=== PATIENT | female | born 1955 | race Caucasian/White ===

== ENCOUNTER → 2021-03-30 09:50 | Outpatient (CLI) | payer MEDICARE, OTHER, SELFPAY ==
--- NOTE | 2021-03-30 | DI.MG.S_ITS ---
BILATERAL DIGITAL SCREENING MAMMOGRAM 3D/2D WITH CAD: 03/30/2021 CLINICAL: Routine screening. Family history of breast cancer. Comparison is made to exams dated: 04/25/2018 mammogram, 04/20/2017 mammogram, 03/17/2016 mammogram - [facility], and 08/31/2012 mammogram - [facility]. The tissue of both breasts is heterogeneously dense. This may lower the sensitivity of mammography. Current study was also evaluated with a Computer Aided Detection (CAD) system. There are benign post operative findings in the right breast. No significant masses, calcifications, or other findings are seen in either breast. There has been no significant interval change. IMPRESSION: BENIGN There is no mammographic evidence of malignancy. A 1 year screening mammogram is recommended. This exam was interpreted at Station ID: [id number]. NOTE: For mammograms, a report in lay terms will be sent to the patient. Approximately 15% of breast malignancies will not be visualized mammographically. In the management of a palpable breast mass, a negative mammogram must not discourage biopsy of a clinically suspicious lesion. Electronically Signed By: Jacob navarro/ricky:03/30/2021 10:50:24 letter sent: Normal Exam ACR BI-RADS Category 2: Benign Finding(s) [id number]
== END ==
PROVIDERS: PCP Internal Medicine; Referring Provider Internal Medicine; Visit Provider Internal Medicine
DX: Z12.31 Encounter for screening mammogram for malignant neoplasm of breast (principal); Z80.3 Family history of malignant neoplasm of breast
CPT/HCPCS: 77063; 77067

== ENCOUNTER → 2021-07-23 10:12 | Outpatient (CLI) | payer MEDICARE, OTHER, SELFPAY ==
--- NOTE | 2021-07-23 | DI.RAD.S_ITS ---
PROCEDURE: XR DEXA AXIAL SKELETON INDICATIONS: Asymptomatic menopausal state COMPARISON: [facility], CR, DEXA AXIAL SKELETON, 01/21/2009, 10:23. FINDINGS: This blank DEXA report has been sent in error by the PACS system. The correct and complete report will be forthcoming in 1-2 days. Thank you for your patience and understanding. Dictated by: Ajay Chao M.D. on 07/23/2021 at 13:34 Approved by: Ajay Chao M.D. on 07/23/2021 at 13:34
== END ==
PROVIDERS: PCP Internal Medicine; Referring Provider Family Medicine; Visit Provider Family Medicine
DX: M85.831 Other specified disorders of bone density and structure, right forearm (principal); Z78.0 Asymptomatic menopausal state; E07.9 Disorder of thyroid, unspecified; Z87.891 Personal history of nicotine dependence
CPT/HCPCS: 77080; 77081

== ENCOUNTER 2023-03-01 12:27 | Emergency (ER) | payer MEDICARE, OTHER, SELFPAY ==
[2023-03-01 12:35] VITALS: BP 158/74; PULSE 62; RESP 18; TEMP 36.6; O2SAT 99; BMI 24.4
[2023-03-01] MEDS: OXYCODONE/ACETAMINOPHEN 5/325 TABLET 1 TAB PO (13:42)
--- NOTE | 2023-03-01 14:35 | PC.NURSE ---
Wound cleaned with chlorahexadine. Pt tolerated well.
--- NOTE | 2023-03-01 14:40 | ED_ITS ---
HPI - Skin/Abscess/Foreign Bdy <Kaleb Murillo PA-C - Last Filed: 03/01/23 14:47> General Chief complaint: Skin/Abscess/Foreign Body Stated complaint: fish hook stuck in left thumb Time Seen by Provider: 03/01/23 13:24 Source: patient Mode of arrival: Ambulatory Limitations: no limitations History of Present Illness HPI narrative: 67-year-old female presents to the ED with a fish hook stuck in the left thumb. Patient states she was fishing earlier today, when the fissure accidentally embedded itself in her left thumb. Patient tried to remove the fishhook unsuccessfully at home. Patient complains of pain at the site, however denies numbness, tingling, weakness. Patient's last tetanus was 07/03/2021. The fishhook was contaminated with salt water and fish prior to embedding in the patient's thumb. Patient and patient's state that the azael was clamped down as flat as possible. They did bring another hook which was similar to the 1 embedded in the patient's thumb which shows a very slight azael. Related Data Previous Rx's Medication Instructions Recorded cephalexin 500 mg capsule 500 mg PO QID 7 days #28 caps 03/01/23 doxycycline hyclate 100 mg tablet 100 mg PO BID 7 days #14 tabs 03/01/23 Allergies Allergy/AdvReac Type Severity Reaction Status Date / Time cold medicine AdvReac Shakiness Uncoded 03/01/23 12:35 Review of Systems <Kaleb Murillo PA-C - Last Filed: 03/01/23 14:47> Review of Systems ROS Unobtainable: All systems reviewed & are unremarkable except as noted in HPI and below Constitutional Constitutional: Denies chills, Denies fatigue, Denies fever(s), Denies frequent falls, Denies lethargy and Denies weakness Eyes Eyes: Denies change in vision, Denies eye discharge, Denies irritation and Denies loss of vision ENT Ears, Nose, Mouth, and Throat: Denies change in voice, Denies dizziness, Denies neck pain, Denies sore throat and Denies throat swelling Cardiovascular Cardiovascular: Denies chest pain, Denies irregular heart rhythm, Denies li ghtheadedness, Denies palpitations, Denies dyspnea, Denies dyspnea on exertion and Denies orthopnea Respiratory Respiratory: Denies cough, Denies dyspnea, Denies dyspnea on exertion and Denies wheezing Gastrointestinal Gastrointestinal: Denies abdominal pain, Denies change in bowel habits, Denies diarrhea, Denies nausea and Denies vomiting Genitourinary Genitourinary: Denies hematuria, Denies flank pain, Denies urinary incontinence and Denies urinary urgency Musculoskeletal Musculoskeletal: Denies back pain, Denies muscle weakness, Denies neck pain, Denies numbness and Denies tingling Integumentary/Breasts Skin/Breast: Denies pruritus, Denies erythema, Denies rash and Denies wounds Comments: Fish hook embedded in left thumb Neurologic Neurologic: Denies behavioral changes, Denies confusion, Denies dizziness, Denies frequent falls, Denies loss of vision, Denies numbness, Denies tingling and Denies weakness Psychiatric Psychiatric: Denies anxiety, Denies behavioral changes, Denies confusion, Denies depression, Denies homicidal ideation and Denies suicidal ideation Endocrine Endocrine: Denies fatigue, Denies flushing and Denies palpitations Hematologic/Lymphatic Hematologic/Lymphatic: Denies easy bruising Allergic/Immunologic Allergic/Immunologic: Denies urticaria, Denies throat swelling and Denies wheezing Patient History <Kaleb Murillo PA-C - Last Filed: 03/01/23 14:47> Social History Smoking Status: Never smoker Smoking Status: Never smoker alcohol intake frequency: holidays/special occasions only Substance Use Type: does not use Exam <Kaleb Murillo PA-C - Last Filed: 03/01/23 14:47> Narrative Exam Narrative: Const General:?cooperative, healthy appearing and comfortable [facility] Head:?normal to inspection Ears:?hearing grossly normal bilaterally Nose:?external nose normal Face and sinus:?normal facial exam and sinuses nontender Mouth:?oral mucosae normal Throat:?posterior oropharynx normal Eyes General:?appearance normal, both eyes and all related structures Neck Neck:?normal visual inspection and no lymphadenopathy noted Resp Effort & Inspection:?normal respiratory effort Auscultation:?clear to auscultation bilaterally Cardio Rate:?regular rate Rhythm:?regular rhythm Integumentary Fish hook embedded in left thumb. Strength and sensation is intact. There is full range of motion. Patient is neurovascularly intact. Neuro General:?patient alert, patient awake and patient oriented x3 Initial Vital Signs Initial Vital Signs: Vital Signs Temperature 97.8 F 03/01/23 12:35 Pulse Rate 62 03/01/23 12:35 Respiratory Rate 18 03/01/23 12:35 Blood Pressure 158/74 H 03/01/23 12:35 Pulse Oximetry 99 03/01/23 12:35 Oxygen Delivery Method Room Air 03/01/23 12:35 <DO Shanon Young Last Filed: 03/01/23 19:21> Initial Vital Signs Initial Vital Signs: Vital Signs Temperature 97.8 F 03/01/23 12:35 Pulse Rate 62 03/01/23 12:35 Respiratory Rate 18 03/01/23 12:35 Blood Pressure 158/74 H 03/01/23 12:35 Pulse Oximetry 99 03/01/23 12:35 Oxygen Delivery Method Room Air 03/01/23 12:35 Procedures <Kaleb Murillo PA-C - Last Filed: 03/01/23 14:47> Foreign Body OTHER Foreign Body Removal Site: left and hand Description of foreign body: fish hook Sedation/Analgesia: none Technique: removal with forceps Confirmed by:: direct visualization, patient report and palpation Complications: none Post-procedure exam: awake, alert, normal BP, normal HR and normal O2 sat Neurovascular: normal distal pulse, normal capillary fill, distal light touch sensation intact, distal motor function normal, no signs of compartment syndrome and no change from pre-procedure Course <RM Kelley Last Filed: 03/01/23 14:47> Orders Ordered: Discontinued Medications Oxycodone/Acetaminophen (Oxycodone/Acetaminophen 5/325 Tablet) 1 tab PO NOW ONE Stop: 03/01/23 13:30 Last Admin: 03/01/23 13:42 Dose: 1 tab Documented By: EUGENE Vital Signs Vital signs: Vital Signs - 8 hr 03/01/23 12:35 03/01/23 14:41 Temperature 97.8 F Pulse Rate 62 58 L Respiratory Rate 18 18 Blood Pressure 158/74 H Pulse Oximetry 99 98 Oxygen Delivery Method Room Air Room Air <DO Shanon Young Last Filed: 03/01/23 19:21> Orders Ordered: Discontinued Medications Oxycodone/Acetaminophen (Oxycodone/Acetaminophen 5/325 Tablet) 1 tab PO NOW ONE Stop: 03/01/23 13:30 Last Admin: 03/01/23 13:42 Dose: 1 tab Documented By: EUGENE Vital Signs Vital signs: Vital Signs - 8 hr 03/01/23 12:35 03/01/23 14:41 Temperature 97.8 F Pulse Rate 62 58 L Respiratory Rate 18 18 Blood Pressure 158/74 H Pulse Oximetry 99 98 Oxygen Delivery Method Room Air Room Air MDM - Skin/Abscess/Foreign Bdy <Kaleb Murillo PA-C - Last Filed: 03/01/23 14:47> MDM Narrative Medical decision making narrative: 67-year-old female presents to the ED with a fish hook stuck in the left thumb. Patient was given some Percocet for pain relief, the left thumb was numbed with 1% lidocaine. The facial was successfully removed with a hemostat through retraction. Bleeding was controlled with pressure. Patient tolerated the procedure well. Prescribed antibiotics. Recommend follow-up with PCP. Wound care, signs of infection discussed with patient. Patient verbalized understanding. ED return precautions were discussed with patient. Patient verbalized understanding. Medical records reviewed: Yes Discharge Plan Departure Patient Disposition: Home Clinical Impression: Fish hook in finger Instructions: DI for Removal of Foreign Body From Skin Activity Restrictions/Additional Instructions: You were evaluated in the ED for a fish hook stuck in your finger. The fish hook was successfully removed. You are being prescribed antibiotics as a preventative measure since the fishhook was contaminated. Please follow-up with your PCP as soon as possible. Watch for signs of infections including worsening redness, pain, swelling, warmth, discharge at the site of the wound. Return to the ED or follow-up with your PCP if you note any signs of infection. Prescriptions: New doxycycline hyclate 100 mg tablet 100 mg PO BID 7 Days Qty: 14 0RF cephalexin 500 mg capsule 500 mg PO QID 7 Days Qty: 28 0RF Referrals: Yael Washburn DO [Primary Care Provider] - Stand Alone Forms: Patient Portal/API <Alissa Tavera DO - Last Filed: 03/01/23 19:21> Cosign ED Attending Bessieature Attestation: I was immediately available in the department for consultation. Documentation has been reviewed.
[2023-03-01 14:41] VITALS: PULSE 58; RESP 18; O2SAT 98
== END 2023-03-01 14:43 | disposition home or self-care (01) ==
PROVIDERS: Emergency Provider Student in an Organized Health Care Education/Training Program; PCP Family Medicine
DX: S69.90XA Unspecified injury of unspecified wrist, hand and finger(s), initial encounter (principal)
CPT/HCPCS: 99283

== ENCOUNTER → 2024-06-01 14:09 | Outpatient (CLI) | payer MEDICARE, OTHER, SELFPAY ==
--- NOTE | 2024-06-01 14:12 | DI.RAD.S_ITS ---
PROCEDURE: XR DEXA AXIAL SKELETON INDICATIONS: Specified disorders of bone density and structure COMPARISON: [facility], CR, XR DEXA AXIAL SKELETON, 07/23/2021, 10:45. FINDINGS: Lumbar Spine: Bone mineral density 1.080 g/cm2, T score 0.3, unchanged. Left Hip: Bone mineral density 0.827 g/cm2, T score -0.9, compared to -0.7. Left Femoral Neck: Bone mineral density 0.649 g/cm2, T score -1.8, compared to -1.5. Left Forearm: Bone mineral density 0.542 g/cm2, T score -2.5, compared to -2.3. Fracture Risk Calculation (when applicable): 10-year fracture risk of a major osteoporotic fracture 11 percent and of a hip fracture 11.8 percent. 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 Moderate osteopenia in the left femoral neck, slightly progressive. Follow-up guidelines as follows: Osteoporosis: Consider a repeat DEXA and Vertebral Fracture Assessment (VFA) exam in 2 years or sooner if medically necessary, to reassess this patient's status. Osteopenia: Consider a repeat DEXA in 2-3 years to reassess this patient's status, or if there is a new clinical indication. Normal: Consider a repeat DEXA in 5 years or sooner, or if there is a new clinical indication. All treatment decisions require clinical judgment and consideration of individual patient factors, including patient preferences, comorbidities, previous drug use, risk factors not captured in the FRAX model (e.g., frailty, falls, vitamin D deficiency, increased bone turnover, interval significant decline in bone density ) and possible under- or over-estimation of fracture risk by FRAX. In addition, the NOF Guide recommends that FDA-approved medical therapies be considered in postmenopausal women and men age >= 50 years with a: * Hip or vertebral (clinical or morphometric) fracture * T-score of <=-2.5 at the spine or hip * Ten-year fracture probability by FRAX of >= 3% for hip fracture or >=20% for major osteoporotic fracture. People with diagnosed cases of osteoporosis or at high risk for fracture should have regular bone mineral density tests. For patients eligible for Medicare, routine testing is allowed once every 2 years. The testing frequency can be increased to one year for patients who have rapidly progressing disease, those who are receiving or discontinuing medical therapy to restore bone mass, or have additional risk factors. Dictated by: Leeann Cornell M.D. on 06/03/2024 at 14:33 Approved by: Leeann Cornell M.D. on 06/03/2024 at 14:36
== END ==
LOC: RAD 14:11
PROVIDERS: PCP Family Medicine; Referring Provider Family Medicine; Visit Provider Family Medicine
DX: M81.0 Age-related osteoporosis without current pathological fracture (principal)
CPT/HCPCS: 77080; 77081